=== PATIENT | male | born 1985 | race Caucasian/White ===

== ENCOUNTER 2017-05-28 11:12 | Emergency (ER) | payer MEDICARE, MEDICAID ==
[~2017-05-28] VITALS: Ht 170.2 cm; Wt 75.0 kg
[~2017-05-28 11:12] MED LIST: CALC667C4 PO; CLON0.1T PO
[2017-05-28 11:14] VITALS: BP 108/70
[2017-05-28 12:47] LABS: HEMATOCRIT. 37.1 % (42.0-52.0); HEMOGLOBIN. 12.7 g/dL (14.0-18.0); MEAN CORPUSCULAR HEMOGLOBIN 30.5 pg (28.0-32.0); MEAN CORPUSCULAR VOLUME 89.2 fL (80.0-94.0); MEAN PLATELET VOLUME 7.4 fl (7.4-10.4); PLATELET 229 x1000/uL (130-400); RED BLOOD CELL COUNT 4.16 mill/uL (4.7-6.1); RED CELL DISTRIBUTION WIDTH 13.4 % (11.6-14.6)
[2017-05-28 12:57] LABS: PROTHROMBIN TIME 10.7 sec
[2017-05-28 13:03] LABS: CHLORIDE 106 mEq/L (98-107)
[2017-05-28 13:07] LABS: CARBON DIOXIDE 28 mEq/L (21-32); PLATELET ESTIMATE NORMAL
== END 2017-05-28 14:55 | disposition home or self-care (01) ==
LOC: ER 11:27
DX: S30.0XXA Contusion of lower back and pelvis, initial encounter (principal); D72.819 Decreased white blood cell count, unspecified; N18.9 Chronic kidney disease, unspecified; Z94.0 Kidney transplant status; Z88.3 Allergy status to other anti-infective agents; V43.52XA Car driver injured in collision with other type car in traffic accident, initial encounter; Y93.89 Activity, other specified; Y92.488 Other paved roadways as the place of occurrence of the external cause
CPT/HCPCS: 36415; 70450; 72125; 74176; 80053; 83690; 85025; 85610; 99285